=== PATIENT | male | born 1985 | race Caucasian/White ===

== ENCOUNTER 2019-05-03 13:34 | Emergency (ER) | payer SELFPAY ==
[2019-05-03 13:37] VITALS: BP 132/74; PULSE 49; RESP 16; TEMP 37.3; O2SAT 98; BMI 29.0
--- NOTE | 2019-05-03 13:44 | ED_ITS ---
HPI - Dental/Oral General: Chief complaint: Dental/Oral Stated complaint: dental/ear pain Time Seen by Provider: 05/03/19 13:43 Source: patient Mode of arrival: ambulatory Limitations: no limitations History of Present Illness: HPI Narrative: Patient comes in today with left lower jaw pain and discomfort referring pain into his left ear. Patient appears well. Patient appears in mild pain. Review of Systems General: Reports: 10 or more systems reviewed and unremarkable except in HPI and below ENMT: Reports: mouth pain PFSH ED PFSH: Social History Smoking and tobacco status: never smoked Physical Exam Const: COMMON NORMALS: no apparent distress and oriented x3 GENERAL APPEARANCE: cooperative HENMT: COMMON NORMALS: normocephalic, external ears normal, EAC's normal, TM's normal bilaterally and external nose normal HEAD & SCALP: normal to inspection and normocephalic FACE & SINUS: normal facial exam NOSE: external nose normal GENERAL EAR: hearing not grossly impaired EXTERNAL EAR: Yes external ears normal EXTERNAL AUDITORY CANAL: EAC's normal TYMPANIC MEMBRANE: TM's normal bilaterally MOUTH: other (Poor dentition, multiple caries, dental tenderness in the left lower molar.) THROAT: posterior oropharynx normal Eye: COMMON NORMALS: PERRL and EOMs intact bilaterally PUPIL: Yes PERRL Neck/C-Spine: COMMON NORMALS: full ROM and no lymphadenopathy Lymph: LYMPHATIC: no lymphedema noted Chest: COMMONS NORMALS: inspection of chest normal and palpation of chest normal Resp: COMMON NORMALS: normal respiratory effort and clear to auscultation bilaterally AUSCULTATION: clear to auscultation bilaterally Cardio: COMMON NORMALS: regular rate and regular rhythm RATE: regular rate RHYTHM: regular rhythm GI: COMMON NORMALS: normal to inspection, nondistended, normoactive bowel sounds and non-tender : COMMON NORMALS: Yes no CVA tenderness BLADDER/KIDNEY EXAM: Yes no CVA tenderness Back/Pelvis: COMMON NORMALS: no CVA tenderness and thoracic and lumbar spine normal to inspection Extremity: COMMON NORMALS: normal to inspection GENERAL: No edema Neuro: COMMON NORMALS: oriented x3, moves all extremities and no focal motor deficits Psych: COMMON NORMALS: mental status grossly normal and cooperative Skin: COMMON NORMALS: no rashes or lesions noted GENERAL SKIN EXAM: no rashes or lesions noted Course Vital Signs: Vital signs: Vital Signs Temperature 99.2 F 05/03/19 13:37 Pulse Rate 49 L 05/03/19 13:37 Respiratory Rate 16 05/03/19 13:37 Blood Pressure 132/74 05/03/19 13:37 Pulse Oximetry 98 05/03/19 13:37 MDM - Dental/Oral MDM Narrative: Medical decision making narrative: Patient comes in today with lower jaw pain on the left side and left ear pain. On exam bilateral tympanic membranes are normal. Oromucosa shows some erythema and swelling to the lateral left lower jaw. Patient also has very very poor dentition with multiple caries and tooth decay. Respirations are even. No airway obstruction. Posterior pharynx is normal without any signs of swelling or edema. Differential diagnosis includes gingivitis, periodontal disease, dental caries, periapical abscess. Reviewed exam with patient with recommendations for treatment. Patient reports understanding and agreed to plan and care. Discharge Plan Discharge Patient Disposition: Home, Self-Care Clinical Impression: Dental caries, Gingival abscess Condition: Stable Prescriptions: New clindamycin HCl 300 mg capsule 300 mg PO TID 7 Days Qty: 21 RF: 0 diclofenac potassium 50 mg tablet 50 mg PO Q8H PRN (Reason: pain) Qty: 15 RF: 0 Lidocaine Viscous 2 % solution 10 ml MUCOUS MEM Q3H PRN (Reason: pain) Qty: 100 RF: 0 Discharge Orders: Discharge Order (Routine); Ordered 05/03/19 Ordered By: Niall Ojeda Discharge Diet: Usual diet Discharge Activity: Increase activity as tolerated Patient Instructions: Toothache (ED) Activity Restrictions/Additional Instructions: Drink plenty of fluids Activity as tolerated Healthy diet Good oral care Follow-up with dentist Discharge Date/Time: 05/03/19 13:56 Coding Level of Care Code ED Newspaper Manager for Chg Fwd Exam Comprehensive
== END 2019-05-03 13:56 | disposition home or self-care (01) ==
LOC: ER 14:03
PROVIDERS: Emergency Provider Nurse Practitioner Family
DX: K02.9 Dental caries, unspecified (principal); K05.319 Chronic periodontitis, localized, unspecified severity
CPT/HCPCS: 12345; 99281

== ENCOUNTER 2019-09-06 18:36 | Emergency (ER) | payer SELFPAY ==
--- NOTE | 2019-09-06 18:44 | XRR_ITS ---
PROCEDURE INFORMATION: Exam: XR Right Shoulder Exam date and time: 09/06/2019 6:45 PM Age: 34 years old Clinical indication: Pain; Shoulder; Right; Additional info: Injury TECHNIQUE: Imaging protocol: XR Right shoulder. Views: 2 or more views. COMPARISON: No relevant prior studies available. FINDINGS: Bones/joints: Normal. Soft tissues: Normal. XR/XR shoulder RT min 2V* [id number] IMPRESSION: No acute findings.
--- NOTE | 2019-09-06 18:57 | W.ED.UPPEXIN ---
Documented by User: MATTHEW Pike 09/06/19 19:24 HPI - Extremity Injury (Upper) General: Chief Complaint: Extremity Problem,Nontraumatic Stated Complaint: right shoulder injury Time Seen by Provider: 09/06/19 18:57 Source: patient Mode of arrival: ambulatory Limitations: no limitations Review of Systems General: Reports: 10 or more systems reviewed and unremarkable except in HPI and below PFSH ED PFSH: Social History Smoking and tobacco status: never smoked Physical Exam Const: COMMON NORMALS: no acute distress and patient oriented x3 GENERAL APPEARANCE: cooperative HENMT: COMMON NORMALS: normocephalic, TM's normal bilaterally and Normal external nose present HEAD & SCALP: normal to inspection and normocephalic NOSE: Normal external nose present TYMPANIC MEMBRANE: TM's normal bilaterally MOUTH: Normal oral and palatal mucosa present THROAT: posterior oropharynx normal Eye: GENERAL EYE: appearance normal, both eyes and all related structures Neck/C-Spine: COMMON NORMALS: full ROM Lymph: LYMPHATIC: no lymphadenopathy noted Chest: COMMONS NORMALS: normal inspection of the chest Resp: COMMON NORMALS: normal respiratory effort EFFORT & INSPECTION: Yes able to speak in complete sentences Cardio: COMMON NORMALS: regular rate and regular rhythm RATE: regular rate RHYTHM: regular rhythm GI: COMMON NORMALS: non-tender : COMMON NORMALS: Yes no CVA tenderness BLADDER/KIDNEY EXAM: Yes no CVA tenderness Back/Pelvis: COMMON NORMALS: no CVA tenderness and thoracic and lumbar spine normal to inspection Extremity: COMMON NORMALS: normal to inspection Neuro: COMMON NORMALS: patient oriented x3 and moves all extremities Psych: COMMON NORMALS: mental status grossly normal and cooperative Skin: COMMON NORMALS: no rashes or lesions noted GENERAL SKIN EXAM: no rashes or lesions noted Course Vital Signs: Vital signs: Vital Signs Temperature 99.3 F 09/06/19 18:58 Pulse Rate 85 09/06/19 18:58 Respiratory Rate 18 09/06/19 18:58 Blood Pressure 143/84 09/06/19 18:58 Pulse Oximetry 97 09/06/19 18:58 Discharge Plan Discharge Patient Disposition: Home, Self-Care Condition: Stable Prescriptions: New Naprosyn 500 mg tablet 500 mg PO BID PRN (Reason: pain) Qty: 20 RF: 0 No Action diclofenac potassium 50 mg tablet 50 mg PO Q8H PRN (Reason: pain) Qty: 15 RF: 0 Lidocaine Viscous 2 % solution 10 ml MUCOUS MEM Q3H PRN (Reason: pain) Qty: 100 RF: 0 Discharge Orders: Discharge Order (Routine); Ordered 09/06/19 Ordered By: Reena Mathew Referrals: Shaun Berry MD [Physician] - 1-3 days Discharge Diet: Advance as tolerated Discharge Activity: Resume usual activity Patient Instructions: Shoulder Sprain (ED) Discharge Date/Time: 09/06/19 19:21 Coding Level of Care Code ED Screen Printing Supervisor for Chg Fwd Exam Comprehensive Documented by User: Reena Mathew MD 09/06/19 19:18 HPI - Extremity Injury (Upper) General: Chief Complaint: Extremity Problem,Nontraumatic Stated Complaint: right shoulder injury Time Seen by Provider: 09/06/19 18:57 Source: patient Mode of arrival: ambulatory Limitations: no limitations History of Present Illness: HPI narrative: 34-year-old male states he has had right shoulder pain over the last 2 weeks. Patient states that it is painful to lift that arm. Denies any specific known injury. He states he has had a mild sharp pain he rates a 3 out of 10. Is improved with rest. He denies any radiation of his pain. Associated symptoms: Denies neck pain Review of Systems Const: Denies: fever(s), chills, body aches or change in appetite Eyes: Denies: blurry vision or eye discomfort ENMT: Denies: throat pain or dental pain Card: Denies: chest pain Resp: Denies: dyspnea GI: Denies: abdominal pain, nausea, vomiting or diarrhea : Denies: dysuria Musc: Denies: neck pain or back pain Skin/Breast: Denies: rash Neuro: Denies: headache(s) Psych: Denies: depression Luis/Lymph: Denies: easy bruising All/Imm: Denies: urticaria PFSH ED PFSH: Social History Smoking and tobacco status: never smoked Physical Exam Const: COMMON NORMALS: no acute distress, patient oriented x3 and healthy appearing HENMT: COMMON NORMALS: normocephalic and atraumatic HEAD & SCALP: normocephalic and atraumatic Eye: COMMON NORMALS: Equal, round and reactive pupils present and EOMs intact bilaterally PUPIL: Yes Equal, round and reactive pupils present Neck/C-Spine: COMMON NORMALS: full ROM and supple Chest: COMMONS NORMALS: normal inspection of the chest and normal palpation of entire chest wall Resp: COMMON NORMALS: normal respiratory effort, No retractions, No use of accessory muscles and clear to auscultation bilaterally AUSCULTATION: clear to auscultation bilaterally Cardio: COMMON NORMALS: regular rate, regular rhythm and No murmurs present (Cardio) RATE: regular rate RHYTHM: regular rhythm GI: COMMON NORMALS: Normal to inspection, nondistended, normoactive bowel sounds present, Soft to palpation, non-tender and no masses PALPATION: Yes Soft to palpation Extremity: COMMON NORMALS: normal to inspection and full ROM NARRATIVE EXTREMITY EXAM: Tenderness over right shoulder full range of motion is available. Neuro: COMMON NORMALS: patient oriented x3, moves all extremities and no focal motor deficits Psych: COMMON NORMALS: mental status grossly normal, Normal thought process present and cooperative THOUGHT PROCESS: Normal thought process present Skin: COMMON NORMALS: no rashes or lesions noted and no wounds GENERAL SKIN EXAM: no rashes or lesions noted Course Vital Signs: Vital signs: Vital Signs Temperature 99.3 F 09/06/19 18:58 Pulse Rate 85 09/06/19 18:58 Respiratory Rate 18 09/06/19 18:58 Blood Pressure 143/84 09/06/19 18:58 Pulse Oximetry 97 09/06/19 18:58 MDM - Extremity Injury (Upper) MDM Narrative: Medical decision making narrative: Patient presents here with shoulder pain is likely a strain. Patient is to ice and will getting follow-up with orthopedics. We will place him on Naprosyn and he is stable for discharge. He is return if worsening. Imaging Data^: xr shoulder: Attestation: I personally reviewed and interpreted this imaging study as follows: Radiologist's impression: no acute abnormality Discharge Plan Discharge Patient Disposition: Home, Self-Care Condition: Stable Prescriptions: New Naprosyn 500 mg tablet 500 mg PO BID PRN (Reason: pain) Qty: 20 RF: 0 No Action diclofenac potassium 50 mg tablet 50 mg PO Q8H PRN (Reason: pain) Qty: 15 RF: 0 Lidocaine Viscous 2 % solution 10 ml MUCOUS MEM Q3H PRN (Reason: pain) Qty: 100 RF: 0 Discharge Orders: Discharge Order (Routine); Ordered 09/06/19 Ordered By: Reena Mathew Referrals: Shaun Berry MD [Physician] - 1-3 days Discharge Diet: Advance as tolerated Discharge Activity: Resume usual activity Patient Instructions: Shoulder Sprain (ED) Discharge Date/Time: 09/06/19 19:21 Coding Level of Care Code ED Screen Printing Supervisor for Chg Fwd Exam Comprehensive
[2019-09-06 18:58] VITALS: BP 143/84; PULSE 85; RESP 18; TEMP 37.4; O2SAT 97; BMI 29.0
[2019-09-06] MEDS: ketorolac 60 mg/2 mL INJ IM (19:09)
== END 2019-09-06 19:21 | disposition home or self-care (01) ==
PROVIDERS: Emergency Provider Emergency Medicine
DX: S49.91XA Unspecified injury of right shoulder and upper arm, initial encounter (principal); X58.XXXA Exposure to other specified factors, initial encounter
CPT/HCPCS: 12345; 73030; 99281; 99283; J1885